=== PATIENT | female | born 1965 | race Caucasian/White ===

== ENCOUNTER 2017-11-15 06:35 | Inpatient (IN) | payer BC ==
[~2017-11-15] VITALS: Ht 160 cm; Wt 75.0 kg
[~2017-11-15 06:35] MED LIST: GABA300C10 PO; LISI-170 PO; METO25TA2 PO; OMEP-110 PO
[2017-11-15] MEDS ORDERED: MIDAZOLAM 1 MG/ML, 2ML ONE (06:44)
[2017-11-15] MEDS ORDERED: FENTANYL PF 100 MCG/2ML ONE ×3 (06:44→10:48)
[2017-11-15] MEDS ORDERED: LIDOCAINE-MPF 2% ,5ML ONE (06:47)
[2017-11-15] MEDS ORDERED: CEFAZOLIN 1,000 MG ONE ×2 (06:47)
[2017-11-15] MEDS ORDERED: ROCURONIUM 10MG/ML,5ML ONE (06:47)
[2017-11-15] MEDS ORDERED: LACTATED RINGERS 1,000 ML IV SCH (06:47)
[2017-11-15] MEDS ORDERED: SUCCINYLCHOLINE 20 MG/ML, 10ML ONE (06:47)
[2017-11-15] MEDS ORDERED: PROPOFOL 10 MG/ML, 20ML ONE (06:47)
[2017-11-15] MEDS ORDERED: SODIUM CHLORIDE 0.9% PF 10ML ONE (06:47)
[2017-11-15] MEDS ORDERED: DEXAMETHASONE 4 MG/ML, 1ML ONE ×2 (06:48)
[2017-11-15] MEDS ORDERED: EPHEDRINE 50 MG/ML, 1ML ONE (06:48)
[2017-11-15] MEDS ORDERED: BUPIVACAINE/PF-EPI 0.5% 1:200K ONE (06:56)
[2017-11-15] MEDS ORDERED: MIDAZOLAM 1 MG/ML, 2ML IV PRN (07:00)
[2017-11-15] MEDS ORDERED: OXYcodone 5 MG/5 ML ORAL.SOL UDC PO PRN (07:00)
[2017-11-15] MEDS ORDERED: MORPHINE SULFATE 4 MG/ML, 1ML IVPush PRN (07:00)
[2017-11-15] MEDS ORDERED: METOPROLOL 1 MG/ML, 5ML IV PRN (07:00)
[2017-11-15] MEDS ORDERED: LORazepam 2 MG/ML, 1ML IVPush PRN (07:00)
[2017-11-15] MEDS ORDERED: ALBUTEROL SULFATE 2.5 MG/3 ML NPPB PRN (07:00)
[2017-11-15] MEDS ORDERED: hydrALAzine 20 MG/ML, 1ML IV PRN ×2 (07:00→13:00)
[2017-11-15] MEDS ORDERED: EPHEDRINE 50 MG/ML, 1ML IVPush PRN (07:00)
[2017-11-15] MEDS ORDERED: PROCHLORPERAZINE 5 MG/ML, 2ML IV PRN (07:00)
[2017-11-15] MEDS ORDERED: LABETALOL 5MG/ML, 20ML IV PRN (07:00)
[2017-11-15] MEDS ORDERED: DIAZEPAM 5 MG/ML, 2ML IVPush PRN (07:00)
[2017-11-15] MEDS ORDERED: MEPERIDINE/PF 25MG/0.5ML IVPush PRN (07:00)
[2017-11-15] MEDS ORDERED: GABAPENTIN 300 MG CAPSULE PO ONE (07:30)
[2017-11-15] MEDS ORDERED: PHENYLEPHRINE 10 MG/ML ONE (07:30)
[2017-11-15] MEDS ORDERED: ONDANSETRON ODT 8 MG PO ONE (07:30)
[2017-11-15] MEDS ORDERED: ACETAMINOPHEN 500 MG TABLET PO ONE (07:30)
[2017-11-15] MEDS ORDERED: BUPIVACAINE/PF-EPI 0.5% 1:200K INFIL ONE (08:28)
[2017-11-15] MEDS: FENTANYL PF 100 MCG/2ML IV PRN ×2 (10:49→11:03)
[2017-11-15] MEDS ORDERED: OXYcodone 5 MG/5 ML ORAL.SOL UDC ONE (10:51)
[2017-11-15] MEDS ORDERED: HYDROmorphone 2 MG/ML, 1ML ONE (11:14)
[2017-11-15] MEDS: HYDROmorphone 2 MG/ML, 1ML IV PRN ×6 (11:16→14:02)
[2017-11-15] MEDS ORDERED: KETOROLAC 30 MG/1 ML ONE (11:31)
[2017-11-15] MEDS ORDERED: KETOROLAC 30 MG/1 ML IVPush PRN (12:00)
[2017-11-15 12:30] VITALS: BP 115/78
[2017-11-15] MEDS ORDERED: ONDANSETRON 2MG/ML, 2ML IV PRN (13:00)
[2017-11-15] MEDS ORDERED: ACETAMINOPHEN 325 MG TABLET PO PRN (13:00)
[2017-11-15] MEDS ORDERED: ACETAMINOPHEN 650 MG SUPP PR PRN (13:00)
[2017-11-15] MEDS: HYDROmorphone 2 MG/ML, 1ML IVPush PRN ×2 (14:02→17:36)
[2017-11-15] MEDS: D5%-0.45NACL+KCL 20MEQ 1,000 ML IV SCH ×2 (14:02→23:00)
[2017-11-15] MEDS: HEPARIN 5,000 UNITS/ML, 1ML SQ SCH ×2 (14:03→20:59)
[2017-11-15] MEDS ORDERED: KETOROLAC 30 MG/1 ML IV PRN (17:30)
[2017-11-15 20:31] VITALS: BP 126/91
[2017-11-15] MEDS: OXYcodone/APAP 5/325MG TABLET PO PRN ×2 (20:59→22:03)
[2017-11-15 23:56] VITALS: BP 125/80
[2017-11-16 03:32] VITALS: BP 124/84
[2017-11-16 05:16] LABS: BASOPHILS # (AUTO) 0.04 x10^3/uL (0-0.1); BASOPHILS % (AUTO) 0 % (0-1); EOSINOPHILS # (AUTO) 0.01 x10^3/uL (0-0.4); EOSINOPHILS % (AUTO) 0 % (1-7); LYMPHOCYTES # (AUTO) 1.99 x10^3/uL (1-3.4); LYMPHOCYTES % (AUTO) 18 % (22-44); MD NO; MEAN CORPUSCULAR HEMOGLOBIN 34.1 pg (27.0-34.8); MEAN CORPUSCULAR HGB CONC 34.4 g/dL (32.4-35.8); MEAN PLATELET VOLUME 8.6 fL (7.4-10.4); MONOCYTES # (AUTO) 0.93 x10^3/uL (0.2-0.8); MONOCYTES % (AUTO) 8 % (2-9); NEUTROPHILS # (AUTO) 8.14 x10^3/uL (1.8-6.8); NEUTROPHILS % (AUTO) 73 % (42-75); PLATELET COUNT 231 x10^3/uL (130-400); RED BLOOD COUNT 3.69 x10^6/uL (3.82-5.3); RED CELL DISTRIBUTION WIDTH 12.7 % (9.6-15.2)
[2017-11-16 05:25] LABS: ALBUMIN 2.9 g/dL (3.4-5.0); ANION GAP 9 mmol/L (5-15); CALCIUM 7.9 mg/dL (8.5-10.1); CHLORIDE 108 mmol/L (98-107)
[2017-11-16 05:26] LABS: CREATININE 0.71 mg/dL (0.55-1.02)
[2017-11-16] MEDS: HEPARIN 5,000 UNITS/ML, 1ML SQ SCH (05:30)
[2017-11-16] MEDS ORDERED: COSYNTROPIN 0.25 MG IVPush ONE (07:00)
[2017-11-16 07:40] VITALS: BP 154/95
== END 2017-11-16 13:00 | disposition home or self-care (01) | DRG 615 ==
LOC: ORIP 06:35 → EDSTATUS 07:30 → EDSEX 07:30 → EDSTATUS 07:30 → 4NOR 12:24 → DCLOUNGE 11-16 12:49
PROVIDERS: ADMIT Surgery; ATTEND Surgery
PROC: 0GT24ZZ Resection of Left Adrenal Gland, Percutaneous Endoscopic Approach (ICD-10-PCS; principal; 2017-11-15 07:30)
DX: D35.02 Benign neoplasm of left adrenal gland (principal); K21.9 Gastro-esophageal reflux disease without esophagitis; F17.210 Nicotine dependence, cigarettes, uncomplicated; I10 Essential (primary) hypertension; Z80.1 Family history of malignant neoplasm of trachea, bronchus and lung; Z79.899 Other long term (current) drug therapy; Z82.49 Family history of ischemic heart disease and other diseases of the circulatory system
CPT/HCPCS: 36415; 80048; 82040; 82533; 85025; 86850; 86900; 88307; C1729; G0378; J0690; J1100; J1170; J1644; J1885; J2250; J2704; J3010; J3490; Q0162; J0330; J0834; J2370; J3480; J7120